=== PATIENT | female | born 1990 | race Caucasian/White ===

== ENCOUNTER 2017-03-02 21:20 | Emergency (ER) | payer BC, OTHER ==
[~2017-03-02] VITALS: Ht 165.1 cm; Wt 84.8 kg
--- NOTE | 2017-03-02 22:45 | ED Lower Extremity ---
General Chief Complaint: Laceration Stated Complaint: FINGER LAC Nursing Triage Note: PT TO ED 5 W/ C/O LACERATION TO INDEX FINGER LT HAND ONSET 2030 THIS EVENING AFTER CUTTING IT ON A CAN AT HOME WHILE MAKING DINNER. ABRASION/AVULSON NOTED TO TIP OF FIRST FINGER ON LT HAND. NO ACTIVE BLEEDING AT THIS TIME. Nursing Sepsis Screen: No Definite Risk Source: patient Exam Limitations: no limitations History of Present Illness Time seen by provider: 22:42 Initial Comments To ER with a skin avulsion to the tip of the left pointer finger that occurred from opening a can of canned goods an hour prior to arrival. Tetanus is up-to- date. Onset: just prior to arrival Severity: mild Pain/Injury Location: left other (left pointer finger) Method of Injury: unknown Modifying Factors: Worse With Movement Allergies and Home Medications Allergies Coded Allergies: Penicillins (Verified Allergy, Unknown, 03/02/17) latex (Verified Allergy, Unknown, 03/02/17) Constitutional: see HPI EENTM: see HPI Respiratory: no symptoms reported Cardiovascular: no symptoms reported Genitourinary: no symptoms reported Musculoskeletal: no symptoms reported Skin: see HPI Psychiatric/Neurological: No Symptoms Reported Past Skrrbar-Zonhxq-Gpfvlt Hx Patient Social History Alcohol Use: Denies Use Recreational Drug Use: No Smoking Status: Never a Smoker Recent Foreign Travel: No Contact w/Someone Who Travel: No Recent Infectious Disease Expo: No Recent Hopitalizations: No Immunizations Up To Date Tetanus Booster (TDap): Less than 5yrs Surgeries HX Surgeries: No Respiratory Hx Respiratory Disorders: No Cardiovascular Hx Cardiac Disorders: No Neurological Hx Neurological Disorders: No Genitourinary Hx Genitourinary Disorders: No Gastrointestinal Hx Gastrointestinal Disorders: No Musculoskeletal Hx Musculoskeletal Disorders: No Endocrine Hx Endocrine Disorders: No HEENT HX ENT Disorders: No Cancer Hx Cancer: No Psychosocial Hx Psychiatric Problems: No Integumentary HX Skin/Integumentary Disorder: No Blood Transfusions Hx Blood Disorders: No Physical Exam Vital Signs Vital Sign - Last 12Hours 03/02/17 21:55 Temp 99.3 Pulse 111 Resp 20 B/P (MAP) 149/107 Pulse Ox 99 O2 Delivery Room Air Capillary Refill : Less Than 3 Seconds General Appearance: WD/WN, no apparent distress HEENT: PERRL/EOMI, normal ENT inspection Neck: non-tender, full range of motion Respiratory: no respiratory distress, no accessory muscle use Gastrointestinal: normal bowel sounds, non tender, soft Hips: bilateral hip non-tender, bilateral hip normal inspection, bilateral hip normal range of motion (I didn't feel like he) Legs: bilateral leg non-tender, bilateral leg normal inspection, bilateral leg normal range of motion Knees: bilateral knee non-tender, bilateral knee normal inspection, bilateral knee normal range of motion Ankles: bilateral ankle non-tender, bilateral ankle normal inspection, bilateral ankle normal range of motion Feet: bilateral foot non-tender, bilateral foot normal inspection, bilateral foot normal range of motion Neurologic/Psychiatric: alert, normal mood/affect, oriented x 3 Skin: normal color, warm/dry Comments There is a small skin avulsion to the distal tip of the left pointer finger that is not actively bleeding. This was easily glued with Dermabond. Progress/Results/Core Measures Results/Orders Vital Signs/I&O Vital Sign - Last 12Hours 03/02/17 21:55 Temp 99.3 Pulse 111 Resp 20 B/P (MAP) 149/107 Pulse Ox 99 O2 Delivery Room Air Blood Pressure Mean: 121 Departure Impression Impression: Primary Impression: Skin avulsion Disposition: 01 HOME, SELF-CARE Condition: Stable Departure-Patient Inst. Decision time for Depature: 22:44 Referrals: NO,LOCAL PHYSICIAN (PCP/Family) Primary Care Physician Patient Instructions: SKIN AVULSION Add. Discharge Instructions: 1. Allow the glue to follow off on its own in 3-5 days. You may wash her hands with soap and water but do not scrub this area and do not apply any petroleum-based ointment such as bacitracin, Bactroban or Vaseline. 2. Return to ER for any sign of infection such as redness or swelling All discharge instructions reviewed with patient and/or family. Voiced understanding. DENZEL ALONSO [employer] Mar 02, 2017 22:45
[2017-03-02 22:49] VITALS: BP 0/0
== END 2017-03-02 22:49 | disposition home or self-care (01) ==
LOC: ER 21:23
DX: S61.211A Laceration without foreign body of left index finger without damage to nail, initial encounter (principal); W26.8XXA Contact with other sharp object(s), not elsewhere classified, initial encounter; Y92.010 Kitchen of single-family (private) house as the place of occurrence of the external cause; Y93.G1 Activity, food preparation and clean up; Y99.8 Other external cause status
CPT/HCPCS: 12001

== ENCOUNTER 2020-01-26 21:57 | Emergency (ER) | payer BC ==
[~2020-01-26] VITALS: Ht 170 cm; Wt 79.3 kg
[2020-01-26] MEDS ORDERED: LACTATED RINGERS 1,000 ML IV ONE (23:13)
[2020-01-26 23:23] LABS: BILIRUBIN,URINE NEGATIVE (NEGATIVE); CLARITY,URINE SL CLOUDY; COLOR,URINE YELLOW; GLUCOSE, URINE (UA) NEGATIVE (NEGATIVE); KETONES,URINE NEGATIVE (NEGATIVE); LEUKOCYTE ESTERASE ,URINE NEGATIVE (NEGATIVE); NITRITE,URINE NEGATIVE (NEGATIVE); PROTEIN,URINE NEGATIVE (NEGATIVE)
--- NOTE | 2020-01-26 23:25 | ED General ---
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 PT STATES SHE HAS SATURATED 5 PADS SINCE 1400, BRIGHT RED BLOOD MIXED WITH CLOTS. PT STATES SHE THINKS SHE IS ABOUT 8 WEEKS PREGANT AND FEARS SHE MAY HAVE MISCARRIED. Nursing Sepsis Screen: Possible Severe Sepsis Risk Source of Information: Patient Exam Limitations: No Limitations (NEYMAR FULTON) History of Present Illness Date Seen by Provider: Jan 26, 2020 Time Seen by Provider: 22:40 Initial Comments This is a 29 y/o female who presents to the ED w/ Vaginal bleeding since this morning which worsened around 1400. State she has soiled several pads, 5 since 1400. Describes passing both blood and large clots; denies passing any Products of conception. Denies precipitating events. Also reports she has been having associated abdominal and pelvic cramping this afternoon which was 5/10 at its worst, but is currently 3/10; the cramping is exacerbated by movement/walking. Denies any F, chills, diarrhea, cough, SOB, weakness, dysuria, or increased frequency. Pt has been breast feeding for the past 18months and has not been menstruating. She has had a positive home test, she says "based on how long I've had symptoms, I think I am 6-8wks along". She has not been seen by her OBGYN, Dr. Boston in [place], yet. Reports her last resulted in natural , had no antepartum complications, but does report she had HTN for which she was on antihypertensive for 1month before it resolved. Her BP has been WNL since. Denies hx of gestational DM. States she is Rh negative but cannot remember whether her son was positive or negative; states her was never tested. She has not gotten a flu or tetanus shot for this . She is taking vitamins. Denies any past surgical hx or chronic medical condition. No further complaints at this time. Timing/Duration: 12-24 Hours Severity: Moderate Modifying Factors: improves with Immobilization; worse with Movement (abd/pelvic pain worse with movement) Associated Systoms: No Chest Pain, No Cough, No Diaphoresis, No Fever/Chills, No Nausea/Vomiting, No Rash, No Shortness of Air, No Syncope, No Weakness; Other (vaginal bleeding, abd/pelvic cramping) (NEYMAR FULTON) Timing/Duration: 12-24 Hours Severity: Moderate Modifying Factors: improves with Rest Associated Systoms: No Nausea/Vomiting, No Rash, No Shortness of Air, No Weakness (ANA ROMANO MD) Allergies and Home Medications Allergies Coded Allergies: Penicillins (Verified Allergy, Unknown, 03/02/17) latex (Verified Allergy, Unknown, 03/02/17) Patient Home Medication List Home Medication List Reviewed: Yes (ANA ROMANO MD) Review of Systems Review of Systems Constitutional: No chills, No diaphoresis, No dizziness, No fever, No weakness EENTM: No nose congestion, No throat swelling Respiratory: No cough, No dyspnea on exertion, No short of breath Cardiovascular: No chest pain, No palpitations Gastrointestinal: abdominal pain (lower, pelvic); No constipation, No diarrhea, No nausea, No vomiting Genitourinary: No dysuria, No frequency Musculoskeletal: see HPI Skin: No pruritus, No rash (NEYMAR FULTON) Gastrointestinal: abdominal pain (lower, pelvic) Genitourinary: see HPI; No hematuria, No hesitancy : Yes Musculoskeletal: No joint pain, No muscle pain Skin: no symptoms reported (ANA ROMANO MD) Past Smtccog-Fshwhc-Rihvuy Hx Past Med/Social Hx: Reviewed Nursing Past Med/Soc Hx (ANA ROMANO MD) Patient Social History Alcohol Use: Denies Use Recreational Drug Use: No Smoking Status: Never a Smoker Recent Foreign Travel: No Contact w/Someone Who Travel: No Recent Infectious Disease Expo: No Recent Hopitalizations: No (NEYMAR FULTON) Immunizations Up To Date Tetanus Booster (TDap): Less than 5yrs (NEYMAR FULTON) Past Medical History Surgeries: No Respiratory: No Cardiac: No Neurological: No : Yes Genitourinary: No Gastrointestinal: No Musculoskeletal: No Endocrine: No HEENT: No Cancer: No Psychosocial: No Integumentary: No Blood Disorders: No (NEYMAR FULTON) Physical Exam Vital Signs Vital Signs - First Documented 01/26/20 22:12 Temp 37.6 Pulse 112 Resp 20 B/P (MAP) 130/66 (87) Pulse Ox 100 O2 Delivery Room Air (ANA ROMANO MD) Vital Signs Capillary Refill : Less Than 3 Seconds (NEYMAR FULTON [facility]) Height, Weight, BMI Height: 5'5.00" Weight: 187lbs. oz. 84.737518lc; 27.00 BMI Method:Stated General Appearance: No Apparent Distress, WD/WN HEENT: PERRL/EOMI, Normal ENT Inspection Respiratory: Chest Non Tender, Lungs Clear, Normal Breath Sounds, No Accessory Muscle Use Cardiovascular: No Edema, No Murmur, Normal Peripheral Pulses, Tachycardia Gastrointestinal: No Pulsatile Mass, Non Tender, Soft; No Distended, No Guarding Extremity: Normal Inspection, Non Tender, No Calf Tenderness, No Pedal Edema Neurologic/Psychiatric: Alert, Oriented x3 Skin: Normal Color, Warm/Dry Lymphatic: No Adenopathy ([facility] General Appearance: No Apparent Distress, WD/WN HEENT: PERRL/EOMI, Normal ENT Inspection Neck: Non Tender, Supple Respiratory: Lungs Clear, Normal Breath Sounds Cardiovascular: No Murmur, Tachycardia Gastrointestinal: No Pulsatile Mass, Non Tender Extremity: Non Tender, No Calf Tenderness Neurologic/Psychiatric: Alert, Oriented x3 Skin: Normal Color, Warm/Dry (ANA ROMANO MD) Progress/Results/Core Measures Suspected Sepsis Recent Fever Within 48 Hours: Yes Infection Criteria Present: Suspected New Infection New/Unexplained Altered Menta: No Sepsis Screen: Possible Severe Sepsis Risk SIRS Temperature: Pulse: 112 Respiratory Rate: 20 Blood Pressure 130 /66 Mean: 87 ([facility]) Results/Orders Lab Results Laboratory Tests Test 01/26/20 22:26 01/27/20 00:56 Range/Units Urine Color YELLOW Urine Clarity SL CLOUDY Urine pH 6.0 5-9 Urine Specific [place] >=1.030 1.016-1.022 Urine Protein NEGATIVE NEGATIVE Urine Glucose (UA) NEGATIVE NEGATIVE Urine Ketones NEGATIVE NEGATIVE Urine Nitrite NEGATIVE NEGATIVE Urine Bilirubin NEGATIVE NEGATIVE Urine Urobilinogen 0.2 < = 1.0 MG/DL Urine Leukocyte Esterase NEGATIVE NEGATIVE Urine RBC (Auto) 2+ H NEGATIVE Urine RBC 2-5 H /HPF Urine WBC NONE /HPF Urine Squamous Epithelial Cells 0-2 /HPF Urine Crystals NONE /LPF Urine Bacteria TRACE /HPF Urine Casts NONE /LPF Urine Mucus SMALL H /LPF Urine Culture Indicated NO White Blood Count 10.3 4.3-11.0 10^3/uL Red Blood Count 3.73 L 4.35-5.85 10^6/uL Hemoglobin 10.8 L 11.5-16.0 G/DL Hematocrit 31 L 35-52 % Mean Corpuscular Volume 84 80-99 FL Mean Corpuscular Hemoglobin 29 25-34 PG Mean Corpuscular Hemoglobin Concent 35 32-36 G/DL Red Cell Distribution Width 12.8 10.0-14.5 % Platelet Count 226 130-400 10^3/uL Mean Platelet Volume 10.2 7.4-10.4 FL Neutrophils (%) (Auto) 77 H 42-75 % Lymphocytes (%) (Auto) 15 12-44 % Monocytes (%) (Auto) 8 0-12 % Eosinophils (%) (Auto) 0 0-10 % Basophils (%) (Auto) 0 0-10 % Neutrophils # (Auto) 8.0 H 1.8-7.8 X 10^3 Lymphocytes # (Auto) 1.5 1.0-4.0 X 10^3 Monocytes # (Auto) 0.8 0.0-1.0 X 10^3 Eosinophils # (Auto) 0.0 0.0-0.3 10^3/uL Basophils # (Auto) 0.0 0.0-0.1 10^3/uL Sodium Level 136 135-145 MMOL/L Potassium Level 3.6 3.6-5.0 MMOL/L Chloride Level 106 98-107 MMOL/L Carbon Dioxide Level 19 L 21-32 MMOL/L Anion Gap 11 5-14 MMOL/L Blood Urea Nitrogen 12 7-18 MG/DL Creatinine 0.63 0.60-1.30 MG/DL Estimat Glomerular Filtration Rate > 60 BUN/Creatinine Ratio 19 Glucose Level 113 H 70-105 MG/DL Calcium Level 8.9 8.5-10.1 MG/DL Corrected Calcium 9.1 8.5-10.1 MG/DL Total Bilirubin 0.2 0.1-1.0 MG/DL Aspartate Amino Transf (AST/SGOT) 12 5-34 U/L Alanine Aminotransferase (ALT/SGPT) 10 0-55 U/L Alkaline Phosphatase 49 40-136 U/L Total Protein 6.4 6.4-8.2 GM/DL Albumin 3.7 3.2-4.5 GM/DL Human Chorionic Gonadotropin, Quant 57775 H <5 MIU/ML (ANA ROMANO MD) My Orders Orders - ANA ROMANO MD Cbc With Automated Diff (01/26/20 23:09) Hcg,Quantitative (01/26/20 23:09) Abo Rh Type (01/26/20 23:09) Ed Iv/Invasive Line Start (01/26/20 23:09) Comprehensive Metabolic Panel (01/26/20 23:09) Ua Culture If Indicated (01/26/20 23:10) Lactated Ringers (Lr 1000 Ml Iv Solution (01/26/20 23:13) Rhogam Administration (01/27/20 01:24) Rh Immune Globulin Rhophylac (01/27/20 01:24) Rhogam Administration (01/27/20 01:24) (ANA ROMANO MD) Medications Given in ED Current Medications Medications Dose Ordered Sig/Jermaine Route Start Time Stop Time Status Last Admin Dose Admin Lactated Ringer's 1,000 ml @ 0 mls/hr Q0M ONCE IV 01/26/20 23:13 01/26/20 23:14 DC 01/26/20 23:42 0 MLS/HR (ANA ROMANO MD) Vital Signs/I&O 01/26/20 22:12 Temp 37.6 Pulse 112 Resp 20 B/P (MAP) 130/66 (87) Pulse Ox 100 O2 Delivery Room Air (ANA ROMANO MD) Vital Signs/I&O Capillary Refill : Less Than 3 Seconds (NEYMAR [facility]ULTON [facility]) Blood Pressure Mean: 87 Progress Note : Time: 22:45 Progress Note Seen and evaluated. Possible spontaneous , threatened vs inevitable vs incomplete. Pt has no fever, normal RR, or a source of infection; she does not meet sepsis criteria. Pt has had positive home test and estimates she is 6-8 wks along. Has not had her initial OB visit yet. UA and quantitative hCG, CBC, and CMP ordered. Will give a liter of LR and will perform a bedside transabdominal U/A (NEYMAR FULTON [facility]) Progress Note : Progress Note I have seen and evaluated the patient and agree with above except as indicated I have directed the plan of care. Patient is here with vaginal bleeding. She had positive home test 2 weeks ago. She suspects that she may be 6-8 weeks along. She has not had confirmatory testing or ultrasound. She follows with OB in [place]. Bedside ultrasound performed and shows uterus with complex fluid within the uterine cavity. No obvious pole. Patient is tachycardic. Plan for IV, labs and ABO Rh evaluation. Patient thinks that she is A- blood type and has had rolled down on previous pregnancies. This will be ordered today for the suspected miscarriage. LR 1 L bolus. Monitor patient. 0237: Patient did receive RhoGam administration as her blood type is a negative. Quant level was greater than 15,000. She will follow-up with her OB doctor on Tuesday. Discharged home with return precautions. Patient verbalize understanding instructions and agreement with plan. (ANA ROMANO MD) Departure Impression Primary Impression: Spontaneous miscarriage Disposition: HOME, SELF-CARE Condition: Stable Departure-Patient Inst. Decision time for Depature: 02:39 (ANA ROMANO MD) Referrals: NO,LOCAL PHYSICIAN (PCP/Family) Primary Care Physician Patient Instructions: Miscarriage (DC) Add. Discharge Instructions: All discharge instructions reviewed with patient and/or family. Voiced understanding. Your blood type is A-. Your hCG quantitative level was 15,704. You did receive RhoGAM administration. You need to call your OB doctor on Tuesday morning for appointment and recheck and to repeat your quantitative hCG level to ensure that it is falling. Return for worse pain, weakness, breathing problems, fever, foul- smelling vaginal discharge, bleeding greater than 2 pads per hour for more than 2 hours or other concerns as needed. You may take Tylenol and/or ibuprofen as needed for fever or pain. Drink plenty of fluids. NEYMAR FULTON [facility] Jan 26, 2020 23:25 ANA ROMANO MD Jan 27, 2020 01:33
[2020-01-26 23:27] LABS: BACTERIA,URINE TRACE /HPF; SQUAMOUS EPITHELIAL CELL,UR 0-2 /HPF
[2020-01-27 01:09] LABS: BASOPHILS % (AUTO) 0 % (0-10); EOSINOPHILS % (AUTO) 0 % (0-10); HEMATOCRIT 31 % (35-52); HEMOGLOBIN 10.8 G/DL (11.5-16.0); LYMPHOCYTES # (AUTO) 1.5 X 10^3 (1.0-4.0); LYMPHOCYTES % (AUTO) 15 % (12-44); MEAN CORPUSCULAR HEMOGLOBIN 29 PG (25-34); MEAN CORPUSCULAR HGB CONC 35 G/DL (32-36); MEAN CORPUSCULAR VOLUME 84 FL (80-99); MEAN PLATELET VOLUME 10.2 FL (7.4-10.4); MONOCYTES # (AUTO) 0.8 X 10^3 (0.0-1.0); MONOCYTES % (AUTO) 8 % (0-12); NEUTROPHILS % (AUTO) 77 % (42-75); PLATELET COUNT 226 10^3/uL (130-400); RED CELL DISTRIBUTION WIDTH 12.8 % (10.0-14.5); WHITE BLOOD COUNT 10.3 10^3/uL (4.3-11.0)
[2020-01-27 01:44] LABS: ALANINE AMINOTRANSFERASE 10 U/L (0-55); ALBUMIN 3.7 GM/DL (3.2-4.5); ALKALINE PHOSPHATASE 49 U/L (40-136); BILIRUBIN,TOTAL 0.2 MG/DL (0.1-1.0); BUN/CREATININE RATIO 19; CALCIUM 8.9 MG/DL (8.5-10.1); CARBON DIOXIDE 19 MMOL/L (21-32); CHLORIDE 106 MMOL/L (98-107); CREATININE SERUM 0.63 MG/DL (0.60-1.30); GFR ESTIMATED > 60; GLUCOSE 113 MG/DL (70-105); POTASSIUM 3.6 MMOL/L (3.6-5.0); SODIUM 136 MMOL/L (135-145); TOTAL PROTEIN 6.4 GM/DL (6.4-8.2)
[2020-01-27 02:52] VITALS: BP 122/78
== END 2020-01-27 02:52 | disposition home or self-care (01) ==
LOC: EDUNIT# 21:57 → ER 21:59
DX: O03.9 Complete or unspecified spontaneous abortion without complication (principal); Z88.0 Allergy status to penicillin; Z91.040 Latex allergy status
CPT/HCPCS: 36415; 80053; 81000; 84702; 85025; 86900; 86901; 96360; 96372